=== PATIENT | female | born 1955 | race Caucasian/White ===

== ENCOUNTER 2018-02-04 05:32 | Observation (INO) ==
--- NOTE | 2018-02-04 05:38 | Emergency Department Note ---
Disposition Clinical Impression: Gastroenteritis, OMKAR (acute kidney injury) Disposition: Admitted As Inpatient Condition: Fair Referrals: Janel Almeida MD [Primary Care Provider] - Forms: ED Satisfaction Letter Nausea/Vomiting/Diarrhea HPI - General Chief complaint: ED Nausea/Vomiting/Diarrhea Stated complaint: Nausea, vomiting Time Seen by Provider: 02/04/18 05:35 Source: patient, EMS Mode of arrival: EMS Limitations: altered mental status, physical limitation Nursing Notes Reviewed: Yes Vital Signs Reviewed: Yes - History of Present Illness HPI Narrative: Patient arrives with a limited history. There is concern for some possible coffee-ground component to her emesis. She started this a.m. sometime around 3 AM with vomiting and diarrhea. Diarrhea has been liquid and olsen. Emesis was food with some dark component thought to be coffee grounds. It is unknown the total number of emesis or diarrhea. She was reported to have a heart rate of 93 and was afebrile. She has not been having cough or shortness of breath. She has no known ill exposures. On arrival here her heart rate is about 120 and she is febrile at 102.2. She is soiled with olsen diarrhea and her shirt has some emesis on it with a couple dark flakes that are nonspecific. The [facility] and arrives by EMS without a size changer. The history from the patient is very limited. She is mainly concerned about wanting to go back to the [facility], drinking water and wanting her clothes back. Pt Subjective Complaint: nausea, vomiting, diarrhea Onset (ago): hour(s) Description of emesis: food contents, coffee grounds Associated Abdominal Pain: No Severity: moderate Consistency: constant, Worsening Improves with: nothing Worsens with: eating Associated symptoms: Reports: fever/chills, nausea/vomiting - Related Data Home Medications Medication Instructions Recorded Confirmed Carbamide Peroxide [Murine Ear 4 drop OT QWEEK 05/17/16 02/04/18 Drops] Ibuprofen [Motrin] 800 mg PO Q8HR PRN 05/17/16 02/04/18 Simvastatin [Zocor] 20 mg PO HS 05/17/16 02/04/18 Baby Shampoo Eye Wash 1 appl TP DAILY 11/10/17 02/04/18 Carbamide Peroxide [Ear Wax Drops] 4 drop OT QWEEK 11/10/17 02/04/18 Cetirizine HCl [Zyrtec] 10 mg PO HS 11/10/17 02/04/18 Duloxetine HCl [Cymbalta] 30 mg PO DAILY 11/10/17 02/04/18 Nasir Miguel 1 appl RC AD 11/10/17 02/04/18 Neomycin Recinos/Bacitrac Zn/Poly 1 appl TP AD 11/10/17 02/04/18 [Triple Antibiotic Ointment] Neutrogena Sunscreen 1 appl TP DAILY PRN 11/10/17 02/04/18 Omeprazole [PriLOSEC] 40 mg PO DAILY 11/10/17 02/04/18 Pimecrolimus [Elidel] 1 appl TP BID 11/10/17 02/04/18 Alendronate Sodium [Fosamax] 70 mg PO QWEEK 02/04/18 02/04/18 Aspirin [Lo-Dose Aspirin EC] 81 mg PO DAILY 02/04/18 02/04/18 Sodium Bicarbonate 650 mg PO BID 02/04/18 02/04/18 Allergies Allergy/AdvReac Type Severity Reaction Status Date / Time Penicillins [PCN] Allergy See Verified 05/17/16 06:50 Comments Limitations: ROS unobtainable due to patients medical condition Past Medical History - Past Medical History Attestation: Yes The following information was validated with the patient. Source: patient, old records reviewed, nursing notes reviewed Medical history: Reports: diabetes, hyperlipidemia, hypertension, renal disease , seizures, other (MRDD, anemia) Surgical history: Reports: other (cannot be obtained due to patient's mental status) Psychiatric history: Reports: depression - Social History Smoking Status: Never smoker Smokeless Tobacco Status: No Alcohol use: Reports: none Drug use: Reports: none Physical Exam - General Limitations: physical limitation General appearance: alert, anxious - Head Head exam: atraumatic, normocephalic, normal inspection - Eye Eye exam: Present: normal appearance, PERRL, EOMI. Absent: conjunctival injection - ENT ENT exam: normal exam, normal oropharynx, mucous membranes moist - Neck Neck exam: Present: normal inspection, full ROM, trachea midline - Chest Chest inspection: Present: normal inspection, symmetric chest wall rise - Respiratory Respiratory exam: Present: normal lung sounds bilaterally. Absent: respiratory distress, wheezes, prolonged expiratory phase - Cardiovascular Cardiovascular exam: Present: regular rate, normal rhythm, tachycardia, normal heart sounds - Abdominal Exam Abdominal exam: Present: soft, Non-Tender, normal bowel sounds. Absent: tenderness, distention, guarding, rebound, rigidity, Del Cid's sign, tenderness at McBurney's Point - Extremities Exam Extremities exam: Present: normal inspection, full ROM, normal capillary refill. Absent: tenderness, pedal edema, calf tenderness - Expanded Lower Extremity Exam Neurovascular/Tendon exam: Present: normal capillary refill. Absent: motor deficit, sensory deficit, tendon deficit Gait: not tested/not observed - Back Exam Back exam: Present: normal inspection, full ROM. Absent: tenderness, CVA tenderness (R), CVA tenderness (L) - Neurological Exam Neurological exam: Present: alert. Absent: oriented X3, motor sensory deficit - Psychiatric Psychiatric exam: Present: agitated, anxious - Skin Skin exam: Present: warm, dry, intact, normal color. Absent: rash, pallor Course Course Narrative: 07: With return of all laboratory and testing, care is discussed with Dr. Armenta. Patient's heart rate is at 115, saturation 93% and a blood pressure has been running 120-140 over about 80-100 depending on the patient's animation and motion. She remained smiling and wanting her Beverly to drink water. She has tolerated a fluid challenge. Given her fever and tachycardia I believe she warrants further observation. Review of her records shows her normal heart rate is from 50-80. In discussion with Dr. Armenta she has been coordinated for inpatient observation with continuation of hydration and supportive treatment. I do not believe this will be a bacterial sepsis. She remains alert, cheerful with clear breath sounds, regular rhythm tachycardia without murmur or gallop. Her color and skin turgor excellent with The refill is less than 2 seconds. She has strong peripheral pulses and is appropriately interactive. Vital Signs Temperature 102.2 F H 02/04/18 05:40 Pulse Rate 121 02/04/18 05:40 Respiratory Rate 18 02/04/18 05:40 Blood Pressure 141/99 02/04/18 05:40 O2 Sat by Pulse Oximetry 98 02/04/18 05:40 Temperature 102.2 F H 02/04/18 05:40 Pulse Rate 114 02/04/18 07:11 Respiratory Rate 20 02/04/18 07:11 Blood Pressure 120/89 02/04/18 07:11 O2 Sat by Pulse Oximetry 94 02/04/18 07:11 Oxygen Delivery Oxygen Delivery Room Air Nausea/Vomiting/Diarrhea - Differential Diagnosis Likely: food poisoning, gastroenteritis, dehydration - Medical Records Medical records reviewed: Yes I reviewed the patient's medical records. - Lab Data Lab results reviewed: Yes I reviewed the patient's lab results. Result diagrams: 02/04/18 05:57 02/04/18 05:57 Lab Results 02/04/18 02/04/18 02/04/18 Range/Units 05:57 05:57 05:57 WBC 4.9 (4.3-11.1) K/mcL RBC 2.85 L (3.82-4.97) M/mcL Hgb 9.4 L (11.5-15.4) g/dL Hct 29.5 L (35.3-44.9) % MCV 103.5 H (83.0-100.0) fL MCH 33.0 (28.0-33.3) pg MCHC 31.9 (31.6-35.5) g/dL RDW 12.6 (11.5-14.5) % Plt Count 163 (140-400) K/mcL MPV 12.0 (9.4-12.4) fL Immature Gran % 0.4 (0-4) % Seg Neutrophils % 90.4 % Lymphocytes % 5.5 % Monocytes % 2.9 % Eosinophils % 0.6 % Basophils % 0.2 % Neutrophils # 4.4 (1.6-8.9) K/mcL Lymphocytes # 0.3 L (0.6-4.6) K/mcL Monocytes # 0.1 (0.0-1.3) K/mcL Eosinophils # 0.0 (0.0-0.6) K/mcL Basophils # 0.0 (0.0-0.2) K/mcL Sodium 137 (136-145) mEq/L Potassium 3.6 (3.5-5.1) mEq/L Chloride 110 H (98-107) mEq/L Carbon Dioxide 21 L (23-29) mEq/L BUN 41 H (8-23) mg/dL Creatinine 1.71 H (0.60-1.20) mg/dL Est GFR ( Amer) 37 L (> 60) Est GFR (Non-Af Amer) 30 L (> 60) BUN/Creatinine Ratio 24 (6-26) Glucose 100 (70-105) mg/dL Calculated Osmolality 294 (280-300) Lactic Acid 1.5 (0.5-2.2) mmol/L Calcium 8.4 L (8.6-10.3) mg/dL Total Bilirubin 0.4 (0.3-1.0) mg/dL Direct Bilirubin 0.0 (0.0-0.2) mg/dL Indirect Bilirubin 0.4 (0.0-1.2) mg/dL AST 16 (13-39) Units/L ALT 12 (7-52) Units/L Alkaline Phosphatase 114 H (34-104) Units/L Serum Total Protein 6.9 (6.4-8.9) g/dL Albumin 3.6 (3.5-5.7) g/dL Globulin 3.3 (2.4-3.5) g/dL Albumin/Globulin Ratio 1.1 (1.1-2.2) Amylase 28 L (29-103) Units/L Lipase 17 (11-82) Units/L Urine Color (Yellow) Urine Clarity (Clear) Urine pH (5.0-8.0) pH Units Ur Specific Ione (1.010-1.025) Urine Protein (Neg-Trace) mg/dL Urine Glucose (UA) (Normal) mg/dL Urine Ketones (Negative) mg/dL Urine Blood (Negative) Urine Nitrite (Negative) Urine Bilirubin (Negative) Urine Urobilinogen (Normal) mg/dL Ur Leukocyte Esterase (Negative) Ur Culture Indicated? (NO) 02/04/18 Range/Units 06:50 WBC (4.3-11.1) K/mcL RBC (3.82-4.97) M/mcL Hgb (11.5-15.4) g/dL Hct (35.3-44.9) % MCV (83.0-100.0) fL MCH (28.0-33.3) pg MCHC (31.6-35.5) g/dL RDW (11.5-14.5) % Plt Count (140-400) K/mcL MPV (9.4-12.4) fL Immature Gran % (0-4) % Seg Neutrophils % % Lymphocytes % % Monocytes % % Eosinophils % % Basophils % % Neutrophils # (1.6-8.9) K/mcL Lymphocytes # (0.6-4.6) K/mcL Monocytes # (0.0-1.3) K/mcL Eosinophils # (0.0-0.6) K/mcL Basophils # (0.0-0.2) K/mcL Sodium (136-145) mEq/L Potassium (3.5-5.1) mEq/L Chloride (98-107) mEq/L Carbon Dioxide (23-29) mEq/L BUN (8-23) mg/dL Creatinine (0.60-1.20) mg/dL Est GFR ( Amer) (> 60) Est GFR (Non-Af Amer) (> 60) BUN/Creatinine Ratio (6-26) Glucose (70-105) mg/dL Calculated Osmolality (280-300) Lactic Acid (0.5-2.2) mmol/L Calcium (8.6-10.3) mg/dL Total Bilirubin (0.3-1.0) mg/dL Direct Bilirubin (0.0-0.2) mg/dL Indirect Bilirubin (0.0-1.2) mg/dL AST (13-39) Units/L ALT (7-52) Units/L Alkaline Phosphatase (34-104) Units/L Serum Total Protein (6.4-8.9) g/dL Albumin (3.5-5.7) g/dL Globulin (2.4-3.5) g/dL Albumin/Globulin Ratio (1.1-2.2) Amylase (29-103) Units/L Lipase (11-82) Units/L Urine Color Yellow (Yellow) Urine Clarity Clear (Clear) Urine pH 7.0 (5.0-8.0) pH Units Ur Specific Ione 1.015 (1.010-1.025) Urine Protein Negative (Neg-Trace) mg/dL Urine Glucose (UA) Normal (Normal) mg/dL Urine Ketones Negative (Negative) mg/dL Urine Blood Negative (Negative) Urine Nitrite Negative (Negative) Urine Bilirubin Negative (Negative) Urine Urobilinogen Normal (Normal) mg/dL Ur Leukocyte Esterase Negative (Negative) Ur Culture Indicated? NO (NO) - Radiology Data Radiology results reviewed: Yes I reviewed the patient's radiology results. 3 view x-ray is obtained of the abdomen and chest. Chest does not demonstrate evidence for infiltrate. Abdomen has nonspecific bowel gas pattern without evidence for obstruction or perforation. This is on my interpretation. Impressions Chest/Abdomen X-ray 02/04/18 05:38 IMPRESSION: 1. Bibasilar airspace opacities, favored to be atelectasis. 2. No radiographic finding to account for patient's nausea and vomiting. 3. Hiatal hernia. D/ / Nikolay Spear MD / Nikolay Spear MD Interpreting Provider: Nikolay Spear MD
[2018-02-04] MEDS ORDERED: 0.9 % Sodium Chloride 1,000 ML IVC ONE (05:40)
[2018-02-04] MEDS ORDERED: Ondansetron ODT 4 MG TAB.RAPDIS SL ONE (05:40)
[2018-02-04] MEDS ORDERED: 0.9 % Sodium Chloride 1,000 ML IVC SCH ×2 (05:45→08:26)
[2018-02-04 06:18] LABS: Basophils % 0.2 %; Eosinophils % 0.6 %; Hematocrit 29.5 % (35.3-44.9); Hemoglobin 9.4 g/dL (11.5-15.4); Immature Granulocytes % 0.4 % (0-4); Lymphocytes # 0.3 K/mcL (0.6-4.6); Lymphocytes % 5.5 %; Mean Corpuscular HGB Conc 31.9 g/dL (31.6-35.5); Mean Corpuscular Volume 103.5 fL (83.0-100.0); Monocytes # 0.1 K/mcL (0.0-1.3); Monocytes % 2.9 %; Neutrophils # 4.4 K/mcL (1.6-8.9); Platelet Count 163 K/mcL (140-400); Red Blood Count 2.85 M/mcL (3.82-4.97); Red Cell Distribution Width 12.6 % (11.5-14.5); Segmented Neutrophils % 90.4 %
[2018-02-04 06:42] LABS: Albumin 3.6 g/dL (3.5-5.7); Albumin/Globulin Ratio 1.1 (1.1-2.2); Bilirubin,Indirect 0.4 mg/dL (0.0-1.2); Bilirubin,Total 0.4 mg/dL (0.3-1.0); Calcium 8.4 mg/dL (8.6-10.3); Globulin 3.3 g/dL (2.4-3.5); Potassium 3.6 mEq/L (3.5-5.1); Total Protein 6.9 g/dL (6.4-8.9)
[2018-02-04 07:10] LABS: Bilirubin,Urine Negative (Negative); Blood,Urine Negative (Negative); Clarity,Urine Clear (Clear); Color,Urine Yellow (Yellow); Glucose,Urine (UA) Normal (Normal); Ketones,Urine Negative (Negative); Leukocyte Esterase,Urine Negative (Negative); Nitrite,Urine Negative (Negative); Protein,Urine Negative (Neg-Trace); Specific Gravity,Urine 1.015 (1.010-1.025); Urobilinogen,Urine Normal (Normal)
[2018-02-04] MEDS ORDERED: Naloxone 0.4 MG/ML INJ IVP PRN (08:26)
[2018-02-04] MEDS ORDERED: Dextrose Gel 15 GM/37.5 ML TUBE PO PRN ×2 (08:26)
[2018-02-04] MEDS ORDERED: *HR* Dextrose 50 % in Water (Syg) 50 ML SYRINGE IVP PRN (08:26)
[2018-02-04] MEDS ORDERED: Ondansetron 4 MG/2 ML VIAL IVP PRN ×2 (08:26→11:44)
[2018-02-04] MEDS ORDERED: D5% in Water 1,000 ML IVC PRN (08:26)
[2018-02-04] MEDS ORDERED: Acetaminophen 325 MG TABLET PO PRN (08:26)
[2018-02-04] MEDS: Insulin LISPRO 300 UNITS/3 ML VIAL SQ SCH ×3 (08:50→16:04)
[2018-02-04] MEDS ORDERED: Aspirin Enteric Coated 81 MG Tablet PO SCH (09:00)
[2018-02-04] MEDS ORDERED: [UNRECOGNIZED DRUG - OTHER] TP SCH (09:00)
--- NOTE | 2018-02-04 11:32 | Internal Med History&Physical ---
Date of Encounter: 02/04/18 Time of Encounter: 11:05 Assessment and Plan (1) Gastroenteritis Current visit: Yes Status: Acute Continue IV fluids. We will give anti-medics as needed. (2) OMKAR (acute kidney injury) Current visit: Yes Status: Acute Continue IV fluids and monitor renal indices. (3) Anemia Current visit: No Status: Acute Order anemia testing in a.m. Qualifiers: Anemia type: unspecified type Qualified Code(s): D64.9 - Anemia, unspecified Internal Medicine - H&P: HPI Chief complaint: Vomiting and diarrhea Admitted From: Emergency Dept Plans for Post Hospital Care: Home History of present illness: Ms. Clifford is a 62 year old female who was [facility] the [facility] to emergency room after she developed vomiting with possible coffee-ground emesis and diarrhea a few hours earlier. She was evaluated in emergency room and felt to have acute gastroenteritis and acute kidney injury. She was admitted to [facility] floor for ongoing care needs. She has MRDD/cerebral palsy and cannot give any history. A superintendent tests who has known her for many years supplies the remainder of the history. The patient has had no known disorders of liver gallbladder or exocrine pancreas. She has not had GI bleeding documented in the past. Past Med Surg Social Fam HX - Past Medical History Medical history: diabetes, hyperlipidemia, hypertension, renal disease, seizures , other Additional medical history: MRRD Psychiatric history: depression - Past Surgical History Surgical History: other Additional surgical history: Unknown - Social History Smoking Status: Never smoker Smokeless Tobacco Status: No Alcohol use: none Drug use: none - Family History Mother History Unknown: Yes Internal Medicine - H&P: Meds Carbamide Peroxide [Murine Ear Drops] 4 drop OT QWEEK 05/17/16 [History] Ibuprofen [Motrin] 800 mg PO Q8HR PRN 05/17/16 [History] Simvastatin [Zocor] 20 mg PO HS 05/17/16 [History] Baby Shampoo Eye Wash 1 appl TP DAILY 11/10/17 [History] Carbamide Peroxide [Ear Wax Drops] 4 drop OT QWEEK 11/10/17 [History] Cetirizine HCl [Zyrtec] 10 mg PO HS 11/10/17 [History] Duloxetine HCl [Cymbalta] 30 mg PO DAILY 11/10/17 [History] Nasir Miguel 1 appl RC AD 11/10/17 [History] Neomycin Recinos/Bacitrac Zn/Poly [Triple Antibiotic Ointment] 1 appl TP AD 11/10/17 [History] Neutrogena Sunscreen 1 appl TP DAILY PRN 11/10/17 [History] Omeprazole [PriLOSEC] 40 mg PO DAILY 11/10/17 [History] Pimecrolimus [Elidel] 1 appl TP BID 11/10/17 [History] Alendronate Sodium [Fosamax] 70 mg PO QWEEK 02/04/18 [History] Aspirin [Lo-Dose Aspirin EC] 81 mg PO DAILY 02/04/18 [History] Sodium Bicarbonate 650 mg PO BID 02/04/18 [History] 3 Allergy/AdvReac Type Severity Reaction Status Date / Time Penicillins [PCN] Allergy See Verified 05/17/16 06:50 Comments All Systems PM: A 10-system review of systems was performed and is negative for pertinent findings except as documented above in the HPI. Review of systems: Gen.: Her weight has decreased from 46.7 kg on 11/14/2017 to 36.486 kg at present (if accurate) Cardiovascular: There is no known hypertension heart failure angina DVT or pulmonary embolus Respiratory: She is a lifelong nonsmoker and has no known chronic lung disease GI: As per history of present illness : She had acute kidney injury documented October 2017 and has had improvement without recovery to previous level function. She has no other known kidney or bladder disorders Neurologic: She has cerebral palsy/MRDD. She is able to ambulate without devices in the home. There is no known large distribution strokes or seizures. Endocrine: She was diagnosed with DM 2, diet controlled many years ago. She has hyperlipidemia but no known thyroid disease. Hematology/oncology: She has anemia but no known internal malignancies or blood disorders Psychiatric: There is no known anxiety depression or other mental health diagnosis. Musk skeletal: She has DJD but no other documented bone joint or muscle disorders. - Constitutional Vitals: Temp Pulse Resp BP Pulse Ox 98.2 F 97 14 160/74 96 02/04/18 08:45 02/04/18 08:45 02/04/18 08:45 02/04/18 08:45 02/04/18 08:45 Exam: Gen.: She is a well-developed short female lying in bed who appears in no acute distress HEENT: Head is atraumatic and normal cephalic. Eyes: EOMI. There is no scleral icterus. Mouth: She has deformed teeth. Mucosa is moist. Neck: There is no thyromegaly or adenopathy noted Heart: Regular with rate 100/m. No murmurs or gallops are heard. Lungs: No wheezes or crackles are heard. Abdomen: Bowel sounds are diminished. The abdomen is nontender to palpation. Extremities: She is wearing JOHANNY hose and socks which I did not remove. There is no pitting edema of the lower legs. She has severe DJD changes and deformities of her hands. Neurologic: Mental status: She says an occasional word but is not conversational. She follows some commands. Cranial nerves: Facial movements are symmetric. Tongue protrudes midline. EOMI. Forehead wrinkles bilaterally. Motor: She moves her arms without deficit to observation. She does not follow commands for pronator drift testing or for cerebellar testing Skin: Warm and dry Internal Med - H&P Results - Labs CBC & Chem 7: 02/04/18 05:57 02/04/18 05:57 - VTE Documentation of Mechanical Device: Graduated compression elastic hosiery
[2018-02-04] MEDS: Neosporin OINT 15 GM TUBE TP SCH (12:11)
[2018-02-04] MEDS: [UNRECOGNIZED DRUG - OTHER] TP SCH ×2 (12:11→21:33)
[2018-02-04] MEDS: 0.45 % Sodium Chloride w/KCl 20 MEQ/1,000 ML MLS IVC SCH (13:36)
[2018-02-04] MEDS ORDERED: Loratadine 10 MG TABLET PO SCH (21:00)
[2018-02-05] MEDS: 0.45 % Sodium Chloride w/KCl 20 MEQ/1,000 ML MLS IVC SCH (02:06)
[2018-02-05 06:10] LABS: Basophils % 0.2 %; Eosinophils # 0.1 K/mcL (0.0-0.6); Eosinophils % 1.1 %; Hemoglobin 7.9 g/dL (11.5-15.4); Immature Granulocytes % 0.8 % (0-4); Lymphocytes # 1.3 K/mcL (0.6-4.6); Mean Corpuscular HGB Conc 31.6 g/dL (31.6-35.5); Mean Corpuscular Hemoglobin 33.2 pg (28.0-33.3); Mean Platelet Volume 12.9 fL (9.4-12.4); Monocytes # 0.8 K/mcL (0.0-1.3); Monocytes % 6.6 %; Neutrophils # 10.4 K/mcL (1.6-8.9); Platelet Count 136 K/mcL (140-400); Red Blood Count 2.38 M/mcL (3.82-4.97); Segmented Neutrophils % 81.3 %
[2018-02-05 06:45] LABS: Calcium 7.9 mg/dL (8.6-10.3); Potassium 4.2 mEq/L (3.5-5.1); Uric Acid 4.4 mg/dL (2.3-7.6)
[2018-02-05] MEDS: Insulin LISPRO 300 UNITS/3 ML VIAL SQ SCH ×3 (08:34→16:54)
[2018-02-05] MEDS: [UNRECOGNIZED DRUG - OTHER] TP SCH ×2 (08:34→20:28)
[2018-02-05] MEDS ORDERED: 0.45 % Sodium Chloride w/KCl 20 MEQ/1,000 ML MLS IVC SCH (08:45)
--- NOTE | 2018-02-05 08:45 | Internal Med Progress Note ---
Date of Encounter: 02/05/18 Time of Encounter: 08:35 - Assessment and plan (1) Gastroenteritis Current Visit: Yes Status: Acute Assessment and plan: February 05. Clinically improved although WBC has risen to 12.8. Will continue present management. Possible discharge tomorrow if stable. (2) OMKAR (acute kidney injury) Current Visit: Yes Status: Acute Assessment and plan: February 05. Creatinine decreased slightly to 1.54. Continue present management. (3) Anemia Current Visit: No Status: Acute Assessment and plan: February 05. Hemoglobin decreased to 7.9. Anemia testing pending Qualifiers: Anemia type: unspecified type Qualified Code(s): D64.9 - Anemia, unspecified - Subjective Interval history: February 05. She has had no new problems develop. - Constitutional Vitals: Temp Pulse Resp BP Pulse Ox 98.1 F 86 16 150/52 97 02/05/18 07:16 02/05/18 07:16 02/05/18 07:16 02/05/18 07:16 02/05/18 07:16 Exam: She is resting comfortably in bed and appears in no acute distress. Her abdomen is nontender. Bowel sounds are diminished. I reviewed her medications and lab results. Internal Medicine: Result - Labs CBC & Chem 7: 02/05/18 05:30 02/05/18 05:30 Labs: Short CBC 02/05/18 Range/Units 05:30 WBC 12.8 H D (4.3-11.1) K/mcL Hgb 7.9 L D (11.5-15.4) g/dL Hct 25.0 L (35.3-44.9) % Plt Count 136 L (140-400) K/mcL Neutrophils # 10.4 H (1.6-8.9) K/mcL BMP 02/05/18 05:30 Sodium 136 Potassium 4.2 Chloride 111 H Carbon Dioxide 17 L BUN 37 H Creatinine 1.54 H Glucose 52 L Calcium 7.9 L - VTE Documentation of Mechanical Device: Graduated compression elastic hosiery Consult Discharge Plan - Plan Referrals: Janel Almeida MD [Primary Care Provider] - 1 week
[2018-02-05] MEDS: Neosporin OINT 15 GM TUBE TP SCH (08:55)
[2018-02-05 09:53] LABS: Vitamin B12 228 pg/mL (250-1100)
[2018-02-05 09:54] LABS: Folate > 22.3 ng/mL (3.0-16.0)
[2018-02-05] MEDS ORDERED: Cyanocobalamin (B-12) 1,000 MCG/ML VIAL IM ONE (17:43)
[2018-02-05] MEDS ORDERED: Iron Sucrose Complex 400 MG in 0.9 % Sodium Chloride 250 ML IVPB ONE (17:43)
[2018-02-06 06:27] LABS: Basophils % 0.4 %; Eosinophils # 0.3 K/mcL (0.0-0.6); Eosinophils % 2.8 %; Hematocrit 31.5 % (35.3-44.9); Hemoglobin 9.7 g/dL (11.5-15.4); Immature Granulocytes % 0.2 % (0-4); Lymphocytes # 1.1 K/mcL (0.6-4.6); Lymphocytes % 10.8 %; Mean Corpuscular HGB Conc 30.8 g/dL (31.6-35.5); Mean Corpuscular Hemoglobin 33.3 pg (28.0-33.3); Mean Corpuscular Volume 108.2 fL (83.0-100.0); Monocytes # 0.6 K/mcL (0.0-1.3); Monocytes % 5.2 %; Neutrophils # 8.5 K/mcL (1.6-8.9); Platelet Count 164 K/mcL (140-400); Red Blood Count 2.91 M/mcL (3.82-4.97); Segmented Neutrophils % 80.6 %
[2018-02-06 06:56] LABS: Calcium 7.7 mg/dL (8.6-10.3); Potassium 4.4 mEq/L (3.5-5.1)
[2018-02-06 08:07] VITALS: BP 130/99
[2018-02-06] MEDS: Insulin LISPRO 300 UNITS/3 ML VIAL SQ SCH (08:58)
[2018-02-06] MEDS: [UNRECOGNIZED DRUG - OTHER] TP SCH (08:58)
[2018-02-06] MEDS: Neosporin OINT 15 GM TUBE TP SCH (09:00)
--- NOTE | 2018-02-06 12:21 | Discharge Summary ---
Date of Encounter: 02/06/18 Time of Encounter: 12:10 - Discharge Diagnosis (1) Gastroenteritis Priority: Primary Status: Acute (2) OMKAR (acute kidney injury) Priority: Secondary Status: Acute (3) Anemia Priority: Secondary Status: Acute Qualifiers: Anemia type: unspecified type Qualified Code(s): D64.9 - Anemia, unspecified Hospital course: Ms. Clifford is a 62 year old female who was [facility] to emergency room after she developed vomiting with possible coffee-ground emesis and diarrhea a few hours earlier. She was evaluated in emergency room and felt to have acute gastroenteritis and acute kidney injury. She was admitted to [facility] for ongoing care needs. Initial orders were written by the emergency room physician. I saw her on February 04 and performed a history and physical. She was given IV fluids. Anti- emetics were given as needed. She had no further vomiting after hospitalization. She was able to consume adequate amounts of food and fluid without difficulty. WBC arcadio to 12.8 on February 05 but had improved to 10.6 with decrease in left shift by day of discharge. Creatinine did not change significantly during hospitalization. BUN decreased to 29 by day of discharge. Anemia testing showed iron 19, transferrin saturation 6%, transferrin 215, ferritin 97, B12 228, and folate> 22.3. She was given an iron sucrose infusion and B12 injection IM. She will continue with oral ferrous sulfate with ascorbic acid and oral B12 supplement at discharge. On February 06 she was stable for discharge home. She will follow with her PCP within 1 week. - Time Spent with Patient Total time spent providing and/or coordinating discharge services: - Discharge Medications Prescriptions: Ascorbic Acid [C-500] 500 mg PO DAILY #30 tablet Cyanocobalamin (B-12) [Vitamin B12] 1,000 mcg PO DAILY #30 tablet Ferrous Sulfate 325 mg PO DAILY #30 tablet Home Medications: Carbamide Peroxide [Murine Ear Drops] 4 drop OT QWEEK 05/17/16 [History] Simvastatin [Zocor] 20 mg PO HS 05/17/16 [History] Baby Shampoo Eye Wash 1 appl TP DAILY 11/10/17 [History] Carbamide Peroxide [Ear Wax Drops] 4 drop OT QWEEK 11/10/17 [History] Duloxetine HCl [Cymbalta] 30 mg PO DAILY 11/10/17 [History] Nasir Miguel 1 appl RC AD 11/10/17 [History] Neomycin Recinos/Bacitrac Zn/Poly [Triple Antibiotic Ointment] 1 appl TP AD 11/10/17 [History] Neutrogena Sunscreen 1 appl TP DAILY PRN 11/10/17 [History] Pimecrolimus [Elidel] 1 appl TP BID 11/10/17 [History] Alendronate Sodium [Fosamax] 70 mg PO QWEEK 02/04/18 [History] Sodium Bicarbonate 650 mg PO BID 02/04/18 [History] Ascorbic Acid [C-500] 500 mg PO DAILY #30 tablet 02/06/18 [Rx] Cetirizine HCl [Zyrtec] 10 mg PO HS PRN #0 02/06/18 [Rx] Cyanocobalamin (B-12) [Vitamin B12] 1,000 mcg PO DAILY #30 tablet 02/06/18 [Rx] Ferrous Sulfate 325 mg PO DAILY #30 tablet 02/06/18 [Rx] Omeprazole [PriLOSEC] 40 mg PO DAILY PRN #0 02/06/18 [Rx] Allergies/Adverse Reactions: 3 Allergy/AdvReac Type Severity Reaction Status Date / Time Penicillins [PCN] Allergy See Verified 05/17/16 06:50 Comments Date of admission: 02/04/18 07:50 Primary care physician: Janel Almeida MD - Constitutional Vitals: Temp Pulse Resp BP Pulse Ox 98.3 F 64 20 130/99 98 02/06/18 07:45 02/06/18 07:45 02/06/18 07:45 02/06/18 07:45 02/06/18 07:45 - Patient Status Disposition: Home, Self-Care Condition: Fair Overall status at discharge: patient is progressing back to baseline - Discharge Instructions Follow Up With: Janel Almeida MD [Primary Care Provider] - 1 week - Diet and Activity Activity: resume usual activities as tolerated Diet: advance to your usual diet - VTE Documentation of Mechanical Device: Graduated compression elastic hosiery
== END 2018-02-06 14:00 | disposition home or self-care (01) ==
LOC: INPPIK 05:32 → EMEROOPIK 05:32 → INPPIK 08:15
PROVIDERS: ADMIT Internal Medicine; ATTEND Internal Medicine